=== PATIENT | female | born 1950 | race Caucasian/White ===

== ENCOUNTER 2018-05-02 07:23 | Day surgery (SDC) ==
[2018-05-02] MEDS: TETRACAINE 0.5% UNIT-DOSE OP PRN ×2 (07:50→08:54)
[2018-05-02] MEDS: BETADINE OPTH PREP OP PRN ×2 (07:50→08:54)
[2018-05-02] MEDS: CYCLOGYL 2% OPTH OP PRN ×3 (07:51→08:01)
[2018-05-02] MEDS ORDERED: LIDOCAINE 1%/PHENYLEPHRINE 1.5% BSS (SURGERY) INTRAOCULA ONE (07:54)
[2018-05-02] MEDS ORDERED: DEX-MOXI-KETOR OPTH INJ 1/0.5/0.4 MG/ML IO ONE (07:54)
[2018-05-02] MEDS ORDERED: ZOFRAN 4 MG/2 ML IVP ONE (07:54)
[2018-05-02] MEDS ORDERED: BRIMONIDINE TARTRATE 0.2% OPTH SOL OP PRN (07:54)
[2018-05-02] MEDS ORDERED: BSS WITH EPINEPHRINE OP ONE (07:54)
[2018-05-02] MEDS ORDERED: LIDOCAINE 1% 20 ML MDV ID STA (07:54)
[2018-05-02 08:18] VITALS: TEMP 98.2
[2018-05-02] MEDS ORDERED: DIPRIVAN 20 ML VIAL IVP ONE (08:45)
[2018-05-02] MEDS ORDERED: ZOFRAN 4 MG/2 ML ONE (08:45)
[2018-05-02] MEDS ORDERED: VERSED ONE (08:45)
[2018-05-02 13:27] VITALS: BP 144/64
== END 2018-05-02 10:05 | disposition home or self-care (01) ==
LOC: SURG 07:23
PROVIDERS: ATTEND Ophthalmology
DX: H25.811 Combined forms of age-related cataract, right eye (principal)

== ENCOUNTER 2018-05-15 06:13 | Day surgery (SDC) ==
[2018-05-15] MEDS: TETRACAINE 0.5% UNIT-DOSE OP PRN ×3 (06:25→07:46)
[2018-05-15] MEDS: BETADINE OPTH PREP OP PRN ×2 (06:25→07:40)
[2018-05-15] MEDS: CYCLOGYL 2% OPTH OP PRN ×3 (06:26→06:36)
[2018-05-15] MEDS ORDERED: LIDOCAINE 1% 20 ML MDV ID STA (06:32)
[2018-05-15] MEDS ORDERED: LIDOCAINE 1%/PHENYLEPHRINE 1.5% BSS (SURGERY) INTRAOCULA ONE (06:32)
[2018-05-15] MEDS ORDERED: BSS WITH EPINEPHRINE OP ONE (06:32)
[2018-05-15] MEDS ORDERED: DEX-MOXI-KETOR OPTH INJ 1/0.5/0.4 MG/ML IO ONE (06:32)
[2018-05-15] MEDS ORDERED: BRIMONIDINE TARTRATE 0.2% OPTH SOL OP PRN (06:32)
[2018-05-15] MEDS ORDERED: ZOFRAN 4 MG/2 ML IVP ONE (06:32)
[2018-05-15 06:49] VITALS: TEMP 98.2
[2018-05-15] MEDS ORDERED: DIPRIVAN 20 ML VIAL IVP ONE (07:35)
[2018-05-15] MEDS ORDERED: ZOFRAN 4 MG/2 ML ONE (07:35)
[2018-05-15] MEDS ORDERED: VERSED ONE (07:35)
[2018-05-15 10:27] VITALS: BP 121/56
== END 2018-05-15 08:35 | disposition home or self-care (01) ==
LOC: SURG 06:13
PROVIDERS: ATTEND Ophthalmology
DX: H25.812 Combined forms of age-related cataract, left eye (principal)